=== PATIENT | male | born 1995 | race Two or more races ===

== ENCOUNTER 2019-03-19 09:19 | Emergency (ER) | payer MEDICAID ==
[~2019-03-19] VITALS: Ht 190.5 cm; Wt 111.1 kg
[2019-03-19 09:32] VITALS: BP 121/80
--- NOTE | 2019-03-19 10:36 | NUR ---
SEEN AND EXAMINED BY .
--- NOTE | 2019-03-19 11:37 | NUR ---
Patient discharged to home in stable condition. Written and verbal after care instructions given. Patient verbalizes understanding of instruction.
== END 2019-03-19 11:38 | disposition home or self-care (01) ==
LOC: ER 09:28
DX: J06.9 Acute upper respiratory infection, unspecified (principal); B00.9 Herpesviral infection, unspecified; J45.909 Unspecified asthma, uncomplicated
CPT/HCPCS: 71046

== ENCOUNTER 2020-08-23 17:23 | Emergency (ER) | payer MEDICAID ==
[~2020-08-23] VITALS: Ht 188 cm; Wt 104.3 kg
[2020-08-23 17:39] VITALS: BP 151/91
[2020-08-23] MEDS ORDERED: AMOX-430 PO (18:38)
[2020-08-23] MEDS ORDERED: FLUT16SP16 NS (18:38)
[2020-08-23] MEDS ORDERED: PRED50TA PO (18:38)
[2020-08-23] MEDS ORDERED: NAPR-1164 PO (18:38)
--- NOTE | 2020-08-23 18:47 | NUR ---
Patient discharged to home in stable condition. Written and verbal after care instructions given. Patient verbalizes understanding of instruction.
== END 2020-08-23 18:48 | disposition home or self-care (01) ==
LOC: ER 17:23
DX: J32.1 Chronic frontal sinusitis (principal); J45.909 Unspecified asthma, uncomplicated
CPT/HCPCS: 70450-TC; 70486-TC; 72125-TC